=== PATIENT | male | born 1980 | race Caucasian/White ===

== ENCOUNTER 2017-04-15 11:28 | Emergency (ER) | payer OTHER ==
[~2017-04-15] VITALS: Ht 175.3 cm; Wt 78.0 kg
[~2017-04-15 11:28] MED LIST: BENZ2 PO; BUPR75 PO; CLON1 PO; CYCL10 PO; DIVA500EC PO; DOCU100 PO; Desyrel50 MG; FISH1000; IBUP800 PO; LACT10SY; LORA1 SL; Loxapine10 MG PO; MIRT15 PO; MIRT30 PO; NAPR250 PO; Naprosyn500 MG PO; ONDA4 PO; OXYC5 PO; PALIPERIDONE IM; PARO20 PO; RANI150 PO; SERT100; SERT100 PO; TEMA30 PO; TRAZ100 PO; Ultram50 MG PO; Veetids 500500 MG PO
[2017-04-15] MEDS ORDERED: CLON.5 PO (12:00)
== END 2017-04-15 12:03 | disposition home or self-care (01) ==
LOC: ER 11:28
DX: F41.9 Anxiety disorder, unspecified (principal); F17.290 Nicotine dependence, other tobacco product, uncomplicated; Z88.6 Allergy status to analgesic agent; Z88.8 Allergy status to other drugs, medicaments and biological substances; Z79.899 Other long term (current) drug therapy
CPT/HCPCS: 99283

== ENCOUNTER 2018-08-30 14:57 | Emergency (ER) | payer OTHER ==
[~2018-08-30] VITALS: Ht 177.8 cm; Wt 80.3 kg
[~2018-08-30 14:57] MED LIST changes: +CLON.5 PO
[2018-08-30] MEDS ORDERED: INVEGA (16:30)
[2018-08-30] MEDS ORDERED: OXCA150 PO (16:31)
[2018-08-30] MEDS ORDERED: SUBOXONE 4 MG-1 EACH SL (16:31)
[2018-08-30] MEDS ORDERED: Vistaril50 MG PO (16:52)
== END 2018-08-30 17:03 | disposition home or self-care (01) ==
LOC: ER 14:57
DX: F41.9 Anxiety disorder, unspecified (principal); F19.10 Other psychoactive substance abuse, uncomplicated; F32.9 Major depressive disorder, single episode, unspecified
CPT/HCPCS: 99283

== ENCOUNTER 2019-02-02 02:05 | Emergency (ER) | payer OTHER ==
[~2019-02-02] VITALS: Ht 177.8 cm; Wt 88.5 kg
[~2019-02-02 02:05] MED LIST changes: +INVEGA; +OXCA150 PO; +SUBOXONE 4 MG-1 EACH SL; +Vistaril50 MG PO
[2019-02-02] MEDS ORDERED: ALBUTEROL (02:53)
[2019-02-02] MEDS ORDERED: [UNRECOGNIZED DRUG - OTHER] (02:54)
== END 2019-02-02 05:39 | disposition home or self-care (01) ==
LOC: ER 02:05
DX: J40 Bronchitis, not specified as acute or chronic (principal); G47.33 Obstructive sleep apnea (adult) (pediatric); F17.290 Nicotine dependence, other tobacco product, uncomplicated; Z88.6 Allergy status to analgesic agent; Z88.5 Allergy status to narcotic agent; Z88.8 Allergy status to other drugs, medicaments and biological substances
CPT/HCPCS: 99283; J1100